=== PATIENT | female | born 1995 | race Caucasian/White ===

== ENCOUNTER 2019-01-08 12:58 | Emergency (ER) | payer SELFPAY ==
[~2019-01-08] VITALS: Ht 152.4 cm; Wt 115.2 kg
[2019-01-08] MEDS ORDERED: SODIUM CHLORIDE FLUSH 10ML SYR IVF ONE ×2 (13:30→14:30)
--- NOTE | 2019-01-08 13:54 | NUR ---
Pt to room from lobby.
[2019-01-08 14:04] LABS: BASOPHILS # (AUTO) 0.01 x10^3/uL (0-0.1); BASOPHILS % (AUTO) 0 % (0-1); EOSINOPHILS # (AUTO) 0.03 x10^3/uL (0-0.4); EOSINOPHILS % (AUTO) 0 % (1-7); LYMPHOCYTES # (AUTO) 0.97 x10^3/uL (1-3.4); LYMPHOCYTES % (AUTO) 8 % (22-44); MD NO; MEAN CORPUSCULAR HEMOGLOBIN 24.5 pg (27.0-34.8); MEAN CORPUSCULAR HGB CONC 32.3 g/dL (32.4-35.8); MEAN CORPUSCULAR VOLUME 75.9 fL (80-100); MEAN PLATELET VOLUME 8.5 fL (7.4-10.4); MONOCYTES # (AUTO) 0.39 x10^3/uL (0.2-0.8); MONOCYTES % (AUTO) 3 % (2-9); NEUTROPHILS # (AUTO) 10.07 x10^3/uL (1.8-6.8); NEUTROPHILS % (AUTO) 88 % (42-75); PLATELET COUNT 405 x10^3/uL (130-400); RED BLOOD COUNT 4.13 x10^6/uL (3.82-5.3)
[2019-01-08 14:05] LABS: ALBUMIN 3.3 g/dL (3.4-5.0); ANION GAP 7 mmol/L (5-15); CALCIUM 8.2 mg/dL (8.5-10.1); CHLORIDE 112 mmol/L (98-107)
[2019-01-08 14:08] LABS: ALANINE AMINOTRANSFERASE 20 U/L (12-78); ALKALINE PHOSPHATASE 87 U/L (45-117); BILIRUBIN,TOTAL 0.2 mg/dL (0.2-1.0); CREATININE 0.81 mg/dL (0.55-1.02); TOTAL PROTEIN 7.3 g/dL (6.4-8.2)
--- NOTE | 2019-01-08 14:09 | NUR ---
First contact with pt. Pt c/o RLQ abd pain starting 1 hour ago after taking a shot of tequila. Pt states the pain is worse with movement, described as "fine when I'm just sitting here". Pt placed in gown, positioned for comfort in bed. Continuous oxygen and BP monitors applied, all safety measures observed.
[2019-01-08] MEDS ORDERED: birth control PO (14:13)
[2019-01-08] MEDS ORDERED: FAMOTIDINE 20 MG/2 ML ONE (14:15)
[2019-01-08] MEDS ORDERED: MORPHINE SULFATE 4 MG/ML, 1ML ONE (14:15)
[2019-01-08] MEDS ORDERED: ONDANSETRON 2MG/ML, 2ML ONE (14:15)
--- NOTE | 2019-01-08 14:26 | NUR ---
Pt medicated per MAR, denies other needs.
[2019-01-08] MEDS ORDERED: FAMOTIDINE 20 MG/2 ML IVP ONE (14:30)
[2019-01-08] MEDS ORDERED: MORPHINE SULFATE 4 MG/ML, 1ML IVPush PRN (14:30)
[2019-01-08] MEDS ORDERED: ONDANSETRON 2MG/ML, 2ML IVPush ONE (14:30)
--- NOTE | 2019-01-08 14:38 | NUR ---
US tech at bedside to perform ordered studies.
[2019-01-08 14:43] LABS: HCG UR SG 1.022 (1.003-1.030); MICROSCOPIC NOT IND
[2019-01-08 14:50] LABS: CULTURE INDICATED? NO
--- NOTE | 2019-01-08 15:07 | NUR ---
Pt resting in bed watching TV, NADN, denies pain or other needs at this time. Awaiting recheck.
--- NOTE | 2019-01-08 15:37 | NUR ---
Annalisa KING at bedside to discuss POC with pt.
[2019-01-08 15:39] VITALS: BP 126/64
== END 2019-01-08 15:56 | disposition home or self-care (01) ==
LOC: ED 15:11
DX: K29.00 Acute gastritis without bleeding (principal)
CPT/HCPCS: 36415; 71046; 76700; 80053; 81003; 81025; 83690; 85025; 96374; 96375; 99284; J2405; J3490

== ENCOUNTER 2020-07-18 09:37 | Emergency (ER) | payer MEDICAID, OTHER ==
[~2020-07-18] VITALS: Ht 152.4 cm; Wt 121.2 kg
[~2020-07-18 09:37] MED LIST: birth control PO
[2020-07-18] MEDS ORDERED: MORPHINE SULFATE 4 MG/ML, 1ML ONE ×2 (10:18→10:56)
[2020-07-18] MEDS ORDERED: ONDANSETRON 2MG/ML, 2ML ONE (10:18)
[2020-07-18] MEDS ORDERED: SODIUM CHLORIDE FLUSH 10ML SYR IVF ONE (10:30)
[2020-07-18] MEDS ORDERED: ONDANSETRON 2MG/ML, 2ML IVPush ONE (10:30)
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
[2020-07-18] MEDS: MORPHINE SULFATE 4 MG/ML, 1ML IVPush PRN ×2 (10:35→11:01)
--- NOTE | 2020-07-18 10:36 | NUR ---
PIV STARTED, PT MEDICATED PER EMAR. RESTING ON [employer] W/ CALL LIGHT IN REACH AND SIDE RAILS UPX2. VSS, NADN. AWAITING CT.
--- NOTE | 2020-07-18 10:42 | NUR ---
PT TO CT.
[2020-07-18 11:00] VITALS: BP 137/78
--- NOTE | 2020-07-18 11:02 | NUR ---
PT RETURNED FROM CT, REPORTS NO RELIEF IN PAIN AFTER MEDS. MEDICATED PER EMAR. RESTING ON GURNEY W/ CALL LIGHT IN REACH AND SIDE RAILS UPX2, FAMILY AT BEDSIDE. MARKO PASTOR.
--- NOTE | 2020-07-18 11:04 | NUR ---
MALIA KING IN ROOM TO REMOVE CCOLLAR.
--- NOTE | 2020-07-18 11:48 | NUR ---
PT IN XR.
--- NOTE | 2020-07-18 13:05 | NUR ---
Patient given discharge instructions and they have confirmed that they understand the instructions. Patient ambulatory with steady gait.
== END 2020-07-18 13:06 | disposition home or self-care (01) ==
LOC: ED 13:00
DX: S16.1XXA Strain of muscle, fascia and tendon at neck level, initial encounter (principal); S39.012A Strain of muscle, fascia and tendon of lower back, initial encounter; S76.112A Strain of left quadriceps muscle, fascia and tendon, initial encounter; S76.111A Strain of right quadriceps muscle, fascia and tendon, initial encounter; R51.9 Headache, unspecified; R07.89 Other chest pain; V49.49XA Driver injured in collision with other motor vehicles in traffic accident, initial encounter; W22.10XA Striking against or struck by unspecified automobile airbag, initial encounter; Y93.89 Activity, other specified; Y92.488 Other paved roadways as the place of occurrence of the external cause; Y99.8 Other external cause status
CPT/HCPCS: 70450; 71045; 72110; 72125; 72190; 96374; 96375; 99285; J2270; J2405; 96376